=== PATIENT | female | born 1985 | race Two or more races ===

== ENCOUNTER 2019-04-09 08:40 | Day surgery (SDC) | payer OTHER ==
[~2019-04-09] VITALS: Ht 162.6 cm; Wt 76.0 kg
[~2019-04-09 08:40] MED LIST: ACET500T68 PO; HYDROmorphone 2 MG/ML VIAL IV PRN; IV RINGERS,LACTATED 1000ML 1,000 ML IV SCH; LIDOCAINE 1% PF 2 ML VIAL. ID PRN; MORPHINE SULFATE 2 MG/ML VIAL. IV PRN; MULT-460 PO; ONDANSETRON PF 4 MG/2 ML VIAL. IV PRN; PANT40TA77 PO; PROCHLORPERAZINE 10 MG/2 ML VIAL. IV PRN; SUMA25TA4 PO; fentaNYL PF VIAL 100 MCG/2 ML VIAL IV PRN
[2019-04-09] MEDS ORDERED: ACETAMINOPHEN 500 MG TABLET PO ONE (10:00)
[2019-04-09] MEDS: fentaNYL PF VIAL 100 MCG/2 ML VIAL IV PRN ×3 (10:06→12:45)
[2019-04-09] MEDS ORDERED: SURGICEL HEMOSTAT 4X8 EACH. ONE (10:34)
[2019-04-09] MEDS ORDERED: IOHEXOL 300 MG/ML 50 ML VIAL. ONE (10:34)
[2019-04-09] MEDS ORDERED: BUPIVACAINE MPF 0.5% 30 ML VIAL. ONE (10:35)
[2019-04-09] MEDS ORDERED: MIDAZOLAM HCL/PF 2 MG/2 ML VIAL. ONE (10:58)
[2019-04-09] MEDS ORDERED: ROCURONIUM 50 MG/5 ML VIAL. ONE (10:58)
[2019-04-09] MEDS ORDERED: SEVOFLURANE 61 TO 120 MINUTES. IH ONE (10:59)
[2019-04-09] MEDS ORDERED: DEXAMETHASONE SOD PHOS 4 MG/ML VIAL ONE ×2 (10:59)
[2019-04-09] MEDS ORDERED: PROPOFOL 20 ML IV ONE (10:59)
[2019-04-09] MEDS ORDERED: LIDOCAINE 2% PF 5 ML VIAL. ONE (10:59)
[2019-04-09] MEDS ORDERED: ONDANSETRON PF 4 MG/2 ML VIAL. ONE (10:59)
[2019-04-09] MEDS ORDERED: ceFAZolin 2GM PREMIX 2 GM/50 ML BAG IV ONE (11:00)
[2019-04-09] MEDS ORDERED: KETOROLAC 30 MG/ML VIAL. ONE (11:25)
[2019-04-09] MEDS ORDERED: ESMOLOL 100 MG/10 ML VIAL. IVP ONE (11:36)
[2019-04-09] MEDS ORDERED: NEOSTIGMINE METHYLSULFATE 5 MG/5 ML SYRINGE. ONE (11:38)
[2019-04-09] MEDS ORDERED: GLYCOPYRROLATE 1 MG/5 ML VIAL. ONE (11:38)
[2019-04-09] MEDS ORDERED: fentaNYL PF VIAL 100 MCG/2 ML VIAL ONE (12:09)
--- NOTE | 2019-04-09 12:12 | PDOC4 ---
Operative Note Operative Note Operative Note: Preoperative Diagnosis: Symptomatic cholelithiasis Postoperative Diagnosis: Same Procedure: Laparoscopic cholecystectomy with intraoperative cholangiogram Surgeons: Wayne Philosophy Instructor: Page BAXTER Anesthesia: Gen. Estimated Blood Loss: 10 mL Specimen: Gallbladder to pathology Drains: None Complications: None Indications: The patient is a 33-year-old female who is been experiencing recurrent upper abdominal pain consistent with biliary colic. Surgical treatment was offered by means of a laparoscopic cholecystectomy. The risks of surgery were discussed which include bleeding, infection, bile duct injury, bile leak, pain, the potential for additional surgeries or procedures. The patient understands and would like to proceed. Description: The patient was taken to the operating room and laid supine on the operating table. General anesthesia was performed. The abdomen was prepped with ChloraPrep and draped in a standard surgical fashion. A small infraumbilical incision was made with a scalpel. The Veress needle was then inserted and a pneumoperitoneum was then created. A 5 mm trocar was then inserted and the laparoscope was introduced. In the upper midabdomen a 5 mm trocar was inserted and in the right upper quadrant two 2.3 mm mini lap graspers were inserted. The gallbladder was retracted cephalad. The cystic duct was dissected free from surrounding tissues. One clip was placed on the duct near the gallbladder junction. An opening was made in the duct and a cholangiocatheter placed within and secured with a clip. Using contrast dye and fluoroscopy an intraoperative cholangiogram was performed that appeared unremarkable. The clip and catheter were then withdrawn. Three clips were placed on the cystic duct and it was divided. The cystic artery was then identified, dissected free, doubly clipped and divided as well. The gallbladder was then mobilized away from the liver with cautery. The umbilical 5 millimeter trocar was exchanged for an 11 millimeter trocar. The gallbladder was then placed in an endoscopic bag and extracted at the umbilical trocar site. The fascia there was closed with an 0 Vicryl suture. All blood and irrigation fluid was suctioned and hemostasis was good. The remaining ports were removed and the pneumoperitoneum was relieved. The skin incisions were injected with half percent Marcaine with epinephrine, and all were closed using 4-0 Monocryl suture. Steri-Strips and dressings were then applied. The patient tolerated the procedure well and was sent to the recovery room in stable condition. At the end of the case all counts were correct. SHIMON VANCE MD Apr 09, 2019 12:12
--- NOTE | 2019-04-09 12:14 | DISCH ---
DISCHARGE INSTRUCTIONS Condition on Discharge Condition on Discharge: Stable Activity After Discharge Activity Instructions for Disc: Other, see below (no lifting over 20 lbs X 2 weeks) Diet after Discharge Diet after Discharge: Regular Wound Incision Care Wound/Incision Care: Other, see below (may remove bandaids tomorrow and shower) Follow-Up Follow up with: Dr Vance in 2 weeks in office, call for appt [phone] SHIMON VANCE MD Apr 09, 2019 12:14
--- NOTE | 2019-04-09 12:21 | RAD ---
C-arm fluoroscopy with fluoroscopic spot views Clinical indications: Intraoperative cholangiogram. Laparoscopic cholecystectomy. Total fluoroscopic time: 22 seconds. Total fluoroscopic spot images: 3 IMPRESSION: Fluoroscopic spot images demonstrate opacification of the extrahepatic biliary tree with free flow of contrast material from the common bile duct into the duodenum. No stone or stricture is seen. Electronically signed by: Jagdeep Galan MD (04/09/2019 12:18 PM) [id number]
[2019-04-09] MEDS ORDERED: oxyCODONE/APAP 5/325 1 TAB TABLET PO ONE (13:00)
[2019-04-09 13:02] VITALS: BP 115/62
--- NOTE | 2019-04-10 22:06 | PATHOLOGY ---
[facility] Accession Number: [id number] . 01 Material submitted: . gallbladder - GALLBLADDER . 01 Clinical history: . Symptomatic cholelithiasis. . 02 Diagnosis: "Gallbladder", cholecystectomy: - Chronic cholecystitis. - Cholelithiasis. 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 02 Electronically signed: . Barbie Winchester MD, Pathologist NPI- [id number] . 01 Gross description: . Received in formalin labeled "Willie, Eh, gallbladder" is an intact cholecystectomy specimen measuring 7.9 x 4.0 x 3.3 cm. The serosa is weston-green and smooth and the specimen is opened to reveal dark green velvety mucosa without polyps or masses. The average wall thickness is 0.1 cm. One green ovoid calculus measuring 1.9 cm is present within the gallbladder. Punch Operator sections of the fundus and body and the cystic duct margin are submitted in A1. ([facility] [place]; 04/09/2019) SY/[facility] 04/09/20192006 Local . 02 Pathologist provided ICD-10: K80.10 . 02 CPT . 491640 Specimen Comment: A courtesy copy of this report has been sent to Specimen Comment: [phone], . Specimen Comment: Report sent to / DR HARDY Performed at: [address] [facility] [address], [place] [id number] MD Mitchel Adrian MD Phone: [phone] Performed at: 02 [facility] [address], [place] [id number] MD Rigoberto Rangel MD Phone: [phone]
== END 2019-04-09 13:20 | disposition home or self-care (01) ==
LOC: SURG 08:40
PROVIDERS: ATTEND Surgery
DX: K80.10 Calculus of gallbladder with chronic cholecystitis without obstruction (principal); G43.909 Migraine, unspecified, not intractable, without status migrainosus; K21.9 Gastro-esophageal reflux disease without esophagitis; E11.9 Type 2 diabetes mellitus without complications; F32.9 Major depressive disorder, single episode, unspecified; F41.9 Anxiety disorder, unspecified; Z98.51 Tubal ligation status; Z90.710 Acquired absence of both cervix and uterus; Z98.890 Other specified postprocedural states; Z88.6 Allergy status to analgesic agent; Z88.8 Allergy status to other drugs, medicaments and biological substances; Z79.84 Long term (current) use of oral hypoglycemic drugs
CPT/HCPCS: 47563; 74300; 88304; A7015; J0696; J1100; J1885; J2001; J2250; J2405; J2704; J2710; J3010; J3490; J7030; J7120; Q9967